=== PATIENT | female | born 1985 | race Two or more races ===

== ENCOUNTER → 2016-10-06 | Outpatient (CLI) | payer OTHER ==
[~2016-10-06] MED LIST: ACET325T14 PO; ADAL40PE SC; ALBU18HF INH; AMIT10TA PO; ASCO500T8 PO; CHOL5000 PO; CYAN25009 PO; DICL1TAB52 PO; DICL50TA4 PO; DIPH25CA61 PO; ERGO500017 PO; FERR324T5 PO; FLUT12HF2 INH; GABA100C8 PO; HYDR-2443 PO; HYDR-3144 PO; HYDROCHLOROQUINE PO; IBUP200T5 PO; IBUP800T PO; IRON18TA PO; LACT1CAP37 PO; METH2.5T PO; MILN50TA PO; MONT10TA9 PO; MULT-516 PO; OXYC-302 PO; OXYC1TAB9 PO; PRAV20TA2 PO; PRED10TA PO; PREG100C PO; TRAM50TA2 PO; UBID100C24 PO; VITA1TAB68 PO; ZOLP5TAB6 PO
== END | disposition home or self-care (01) ==
LOC: CFH 10:40
PROVIDERS: ATTEND Internal Medicine
DX: M47.896 Other spondylosis, lumbar region (principal); M47.897 Other spondylosis, lumbosacral region; M51.26 Other intervertebral disc displacement, lumbar region
CPT/HCPCS: 72148

== ENCOUNTER → 2016-10-20 | Outpatient (CLI) | payer OTHER | END | disposition home or self-care (01) | LOC: CARD 09:07 | PROVIDERS: ATTEND Internal Medicine | DX: R20.2 Paresthesia of skin (principal); M54.5 Low back pain; M51.24 Other intervertebral disc displacement, thoracic region; M79.7 Fibromyalgia; G60.8 Other hereditary and idiopathic neuropathies | CPT/HCPCS: 95885; 95911 ==

== ENCOUNTER → 2017-01-05 | Outpatient (CLI) | payer OTHER ==
[~2017-01-05] MED LIST changes: +GABA-826 PO; -GABA100C8 PO
== END | disposition home or self-care (01) ==
LOC: CFH 07:42
PROVIDERS: ATTEND Internal Medicine Gastroenterology
DX: K44.9 Diaphragmatic hernia without obstruction or gangrene (principal); Z98.84 Bariatric surgery status
CPT/HCPCS: 74241

== ENCOUNTER 2017-06-10 13:39 | Emergency (ER) | payer OTHER ==
[~2017-06-10] VITALS: Ht 160 cm; Wt 86.1 kg
[~2017-06-10 13:39] MED LIST changes: -HYDR-3144 PO; +HYDR-3245 PO; +IBUP-1223 PO; +IBUP-1484 PO; -IBUP200T5 PO; -IBUP800T PO
[2017-06-10] MEDS ORDERED: ACETAMINOPHEN 500 MG TABLET ONE (14:41)
[2017-06-10 14:56] LABS: HEMATOCRIT 38.9 % (34.6-47.8); HEMOGLOBIN 12.9 g/dL (11.7-16.4); WHITE BLOOD COUNT 6.1 x10^3/uL (3.4-10)
[2017-06-10] MEDS ORDERED: ACETAMINOPHEN 500 MG TABLET PO ONE (15:00)
[2017-06-10 15:05] LABS: BLOOD UREA NITROGEN 10 mg/dL (7-18)
[2017-06-10 15:08] LABS: ASPARTATE AMINO TRANSFERASE 25 U/L (15-37)
[2017-06-10 15:31] VITALS: BP 151/92
== END 2017-06-10 16:12 | disposition home or self-care (01) ==
LOC: ED 14:36
DX: G44.209 Tension-type headache, unspecified, not intractable (principal); I10 Essential (primary) hypertension; M79.7 Fibromyalgia
CPT/HCPCS: 36415; 70450; 80053; 81003; 85025; 99285

== ENCOUNTER → 2018-01-03 | Outpatient (CLI) | payer OTHER ==
[~2018-01-03] MED LIST changes: +OMNIPAQUE 350 MG/ML, 100ML BOTTLE ONE; +OXYC-432 PO; -OXYC1TAB9 PO
== END | disposition home or self-care (01) ==
LOC: CFH 11:47
PROVIDERS: ATTEND Nurse Practitioner Primary Care
DX: K76.0 Fatty (change of) liver, not elsewhere classified (principal); E61.1 Iron deficiency; E55.9 Vitamin D deficiency, unspecified; E78.2 Mixed hyperlipidemia; J45.909 Unspecified asthma, uncomplicated; G43.909 Migraine, unspecified, not intractable, without status migrainosus; F51.01 Primary insomnia
CPT/HCPCS: 74177; 82565; Q9967